=== PATIENT | male | born 1980 | race Caucasian/White ===

== ENCOUNTER 2019-10-02 14:27 | Emergency (ER) | payer OTHER, MEDICAID, SELFPAY ==
[2019-10-02 14:46] VITALS: BP 122/79; PULSE 88; RESP 15; TEMP 36.4; O2SAT 96; BMI 20.7
--- NOTE | 2019-10-02 15:39 | ED_ITS ---
HPI - Seizure <VIMAL House - Last Filed: 10/02/19 21:03> General Chief Complaint: Seizure Stated Complaint: seizure last night,withdrawls from xanax Time Seen by Provider: 10/02/19 14:47 Source: patient Mode of arrival: Ambulatory Limitations: no limitations History of Present Illness HPI Narrative: This is a 39 male, prior smoker, who presents to ED with his spouse with chief complain of unwitnessed status post seizure activities last night. Patient reports he had seizure and shaking when he went into the kitchen to grab a glass of milk. Then, patient reports he does not remember having a seizure but found himself on the ground in the kitchen. Patient denies having urinary or stool incontinence. Patient reports left shoulder and knee pain from this but is able to bear his weight and walked into ED today. Patient reports he has a history of ischemic stroke in May 2019 and was evaluated at [facility]. States he has known condition for CADASIL and has been worried about having another stroke. Patient elaborated that he has been taking Xanax 0.5 mg for 1 year for insomnia. Since the stroke the dose has been increased up to 3 mg per day due to the anxiety as well. However, due to his insurance problem, his neurologist (unable to recall the name) discontinued prescription for this suddenly. Patient reports last Xanax use about 3 days ago and had concurrently used benzodiazepines overlapping for 2 days. Patient states his seizure activities probably due to sudden stop of taking Xanax. Patient denies having PCP. Patient visited walk-in clinic in [place] and was prescribed hydroxyzine but this has not been helpful for sleep or anxiety. Patient's next appointment with his neurologist is on 11/05/2018. Patient reports has residual L arm weakness and hard to think sometimes. 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 Related Data Home Medications Medication Instructions Recorded Confirmed alprazolam 0.25 mg PO BID 10/02/19 10/02/19 hydroxyzine HCl 50 - 100 mg PO QID PRN 10/02/19 10/02/19 Previous Rx's Medication Instructions Recorded hydroxyzine HCl 25 - 50 mg PO TID PRN #20 tab 10/02/19 Allergies Allergy/AdvReac Type Severity Reaction Status Date / Time No Known Drug Allergies Allergy Verified 10/02/19 14:46 Review of Systems <Noam MARILOU EstevesP - Last Filed: 10/02/19 21:03> Review of Systems Narrative: General: Denies fever, chills, fatigue, malaise, sweats. HEENT: Denies sinus pain, ear pain, sore throat, difficulty swallowing, dizziness. Respiratory: Denies dyspnea, cough, wheezing, hemoptysis, sputum. Cardiovascular: Denies chest pain, palpitations, orthopnea, edema. Gastrointestinal: Denies nausea, vomiting, abdominal pain, diarrhea, const ipation, melena. : Denies dysuria, frequency, incontinence, hematuria, urinary retention. Musculoskeletal: Denies weakness, joint pain or bony pain. Skin: Denies rash, skin lesions, or other. Neurologic: See HPI Psychiatric: Reports insomnia and history of anxiety. 12-point review of systems is negative except for those stated above. Patient History <[facility] - Last Filed: 10/02/19 21:03> Surgical History Hx of tonsillectomy (Acute) Social History Smoking Status: Former smoker alcohol intake frequency: holidays/special occasions only Substance Use Type: marijuana Exam <[facility] - Last Filed: 10/02/19 21:03> Narrative Exam Narrative: GEN: Alert, oriented x 3, thin built, appears to be anxious. Head: Normal cephalic, atraumatic. No scalp or temporal tenderness, palpable mass, crepitus, step-offs or rash. EYES: Pupils are equal, round, and reactive to light and accommodation. Extraocular muscles are intact bilaterally. There is no subconjunctival hemorrhage, exudate and sclera non-icteric. ENT: Bilateral auditory canals and tympanic membranes clear without hemotympanum. Hearing grossly intact. Nose without bleeding, purulent discharge, septal hematoma or deviation. Turbinate without erythema or swelling. Facial sinuses nontender to palpate. Mucous membrane moist, no mucosal lesion. Throat without erythema, tonsillar hypertrophy or exudate. Uvula in midline, airway patent. Neck: Trachea in midline. No JVD, non-tender without lymphadenopathy. No masses or thyroid megaly. Supple, non-tender and no meningeal signs. CARDIAC: Normal regular rate and rhythm without murmurs, gallops, or rubs. No chest wall tenderness. No peripheral edema, cyanosis or pallor. Capillary refill is less than 2 seconds. No carotid bruits. RESPIRATORY: Lungs are cleat to auscultate bilaterally. No cough, wheezes, rales, or rhonchi. No stridor, respiratory distress, increase work of breathin g, or accessary muscle used. ABD: Abdomen soft, nontender and non-distended. No guarding or rebound tenderness to palpate. Bowel sounds are normal in all 4 quadrants. There is no palpable masses or organomegaly. EXT: Full painless ROM of all extremities with no loss of sensation, strength, effusion or edema on left anterior shoulder or knee. Complaining of mild tenderness around the patella in left knee and anterior left shoulder. SKIN: Warm, dry, normal color for patient. No erythema, lesions or rash. BACK: Nontender without deformity or crepitance. No flank tenderness. PSYCHIATRIC: Anxious without hallucinations. Patient is not suicidal. Initial Vital Signs Initial Vital Signs: Vital Signs Temperature 97.6 F 10/02/19 14:46 Pulse Rate 88 10/02/19 14:46 Respiratory Rate 15 10/02/19 14:46 Blood Pressure 122/79 10/02/19 14:46 Pulse Oximetry 96 10/02/19 14:46 Neuro General: alert, awake, oriented x3, moves all extremities and no meningeal signs Cranial Nerves: PERRL, EOM intact bilaterally, No facial strength normal (mild lip droop in L side when asked to smile), tongue midline, hearing normal, able to rotate head bilaterally and symmetric palate elevation Cognition: normal cognition Speech: speech normal Gait: not ataxic Motor: no pronator drift (very mild L pronator drift on L arm) and strength abnormal (Mildly decreased strength in left upper and lower extremities.) Sensory Exam: no sensory deficits noted Coordination: [id number] test normal and [id number] test normal <Zeb Avila, DO - Last Filed: 10/04/19 18:30> Initial Vital Signs Initial Vital Signs: Vital Signs Temperature 97.6 F 10/02/19 14:46 Pulse Rate 88 10/02/19 14:46 Respiratory Rate 15 10/02/19 14:46 Blood Pressure 122/79 10/02/19 14:46 Pulse Oximetry 96 10/02/19 14:46 Scores <Noam EppersonMARILOU realP - Last Filed: 10/02/19 21:03> GCS Risa coma scale eye opening: Spontaneous Meridian coma scale verbal response: Orientated Risa coma scale motor response: Obey commands Risa coma scale total score: 15 NIH Stroke Scale Level of Conciousness: Alert, keenly responsive Ask month/age: Answers both questions correctly. Open/close eyes, close hand: Performs both tasks correctly Best gaze horizontal: Normal Visual thomas: Partial hemianopia (on L side) Facial palsy: Minor paralysis, flattened nasolabial fold, asymmetry on smiling Left arm drift: Drifts down, not to bed Right arm drift: No drift for full 10 sec Right leg drift: Drifts down, not to bed Limb ataxia: Absent Sensory on face/arms/legs: Normal, no sensory loss Best language: No aphasia, normal Dysarthria: Normal Extinction or inattention: No abnormality Course <Noam WinklerMonalisaMARILOU BoggsP - Last Filed: 10/02/19 21:03> Orders Ordered: ED Orders 10/02/19 15:36 EKG-12 Lead Stat 10/02/19 15:59 Urinalysis Sreen (Dip Only) Stat Urine Drug Screen, Rapid Stat 10/02/19 16:00 Complete Blood Count AUTO DIFF Stat Comprehensive Metabolic Panel Stat Magnesium Stat Phosphorous Stat Vital Signs Vital signs: Vital Signs - 8 hr 10/02/19 14:46 10/02/19 17:27 Temperature 97.6 F Pulse Rate 88 80 Respiratory Rate 15 Blood Pressure 122/79 114/81 Pulse Oximetry 96 <Zeb Avila DO - Last Filed: 10/04/19 18:30> Orders Ordered: ED Orders 10/02/19 15:36 EKG-12 Lead Stat 10/02/19 15:59 Urinalysis Sreen (Dip Only) Stat Urine Drug Screen, Rapid Stat 10/02/19 16:00 Complete Blood Count AUTO DIFF Stat Comprehensive Metabolic Panel Stat Magnesium Stat Phosphorous Stat Vital Signs Vital signs: Vital Signs - 8 hr 10/02/19 14:46 10/02/19 17:27 Temperature 97.6 F Pulse Rate 88 80 Respiratory Rate 15 Blood Pressure 122/79 114/81 Pulse Oximetry 96 MDM - Seizure <MARILOU HouseP - Last Filed: 10/02/19 21:03> Differential Diagnosis Differential diagnosis: Likely new onset seizure and other (Syncope, benzodiazepine withdrawal, benzodiazepine abuse) Medical Records Attestation: I reviewed the patient's medical records. Lab Data Attestation: I reviewed the patient's lab results. Result diagrams: 10/02/19 16:00 10/02/19 16:00 Labs: Lab Results 10/02/19 10/02/19 10/02/19 Range/Units 15:59 15:59 16:00 WBC (4.5-11.0) X10^3/uL RBC (4.5-5.9) X10^6/uL Hgb (13.5-17.5) g/dL Hct (41-53) % MCV (80-100) fL MCH (26-34) PG MCHC (30-36) % RDW (11.6-14.8) % Plt Count (150-400) X10^3/uL Neut % (Auto) (50-75) % Lymph % (Auto) (25-40) % Canadian % (Auto) (3-14) % Eos % (Auto) (2-4) % Baso % (Auto) (0-2) % Neut # (Auto) (7998-0954) /uL Lymph # (Auto) (0957-8359) /uL Canadian # (Auto) (0-900) /uL Eos # (Auto) (0-450) /uL Baso # (Auto) (0-100) /uL Sodium 141 (137-145) mmol/L Potassium 4.2 (3.4-5.1) mmol/L Chloride 106 (98-107) mmol/L Carbon Dioxide 26 (22-32) mmol/L BUN 14 (9-20) mg/dL Creatinine 0.70 (0.66-1.25) mg/dL Estimated GFR > 60.0 (>60) mL/min BUN/Creatinine Ratio 20.0 (6-22) Glucose 97 (70-100) mg/dL Calcium 9.5 (8.4-10.2) mg/dL Phosphorus (2.5-4.5) mg/dL Magnesium (1.6-2.3) mg/dL Total Bilirubin 1.0 (0.2-1.3) mg/dL AST 22 (17-59) IU/L ALT 22 (<50) IU/L Alkaline Phosphatase 46 (38-126) U/L Total Protein 7.3 (6.3-8.2) g/dL Albumin 4.7 (3.5-5.0) g/dL Globulin 2.6 (1.7-4.1) g/dL Albumin/Globulin Ratio 1.8 (1.0-2.8) Urine Color Yellow Urine Appearance Clear Urine pH 7.5 (4.5-8.0) Ur Specific [place] <=1.005 (1.000-1.035) Urine Protein Negative (Negative) Urine Glucose (UA) Negative (Negative) g/dL Urine Ketones Negative (NEGATIVE) Urine Occult Blood Negative (Negative) Urine Nitrate Negative (Negative) Urine Bilirubin Negative (NEGATIVE) Urine Urobilinogen 0.2 (0.2) E.U./dL Ur Leukocyte Esterase Negative (NEGATIVE) U Morph 300 ng/mL cutoff Negative (Negative) Ur Oxycodone Screen Negative (Negative) Urine Methadone Screen Negative (Negative) Ur Barbiturates Screen Negative (Negative) U Tricyclic Antidepress Negative (Negative) Ur Phencyclidine Scrn Negative (Negative) Ur Amphetamines Screen Negative (Negative) U Methamphetamines Scrn Negative (Negative) Ur MDMA Scrn (Ecstasy) Negative (Negative) U Benzodiazepines Scrn Positive H (Negative) Urine Cocaine Screen Negative (Negative) U Marijuana (THC) Screen Positive H (Negative) 10/02/19 10/02/19 10/02/19 Range/Units 16:00 16:00 16:00 WBC 9.0 (4.5-11.0) X10^3/uL RBC 4.24 L (4.5-5.9) X10^6/uL Hgb 14.5 (13.5-17.5) g/dL Hct 42.6 (41-53) % MCV 100.6 H (80-100) fL MCH 34.2 H (26-34) PG MCHC 34.0 (30-36) % RDW 13.6 (11.6-14.8) % Plt Count 304 (150-400) X10^3/uL Neut % (Auto) 63.4 (50-75) % Lymph % (Auto) 28.2 (25-40) % Canadian % (Auto) 6.6 (3-14) % Eos % (Auto) 1.1 L (2-4) % Baso % (Auto) 0.7 (0-2) % Neut # (Auto) 5700 (3374-4393) /uL Lymph # (Auto) 2500 (3413-1763) /uL Canadian # (Auto) 600 (0-900) /uL Eos # (Auto) 100 (0-450) /uL Baso # (Auto) 100 (0-100) /uL Sodium (137-145) mmol/L Potassium (3.4-5.1) mmol/L Chloride (98-107) mmol/L Carbon Dioxide (22-32) mmol/L BUN (9-20) mg/dL Creatinine (0.66-1.25) mg/dL Estimated GFR (>60) mL/min BUN/Creatinine Ratio (6-22) Glucose (70-100) mg/dL Calcium (8.4-10.2) mg/dL Phosphorus 3.1 (2.5-4.5) mg/dL Magnesium 2.0 (1.6-2.3) mg/dL Total Bilirubin (0.2-1.3) mg/dL AST (17-59) IU/L ALT (<50) IU/L Alkaline Phosphatase (38-126) U/L Total Protein (6.3-8.2) g/dL Albumin (3.5-5.0) g/dL Globulin (1.7-4.1) g/dL Albumin/Globulin Ratio (1.0-2.8) Urine Color Urine Appearance Urine pH (4.5-8.0) Ur Specific [place] (1.000-1.035) Urine Protein (Negative) Urine Glucose (UA) (Negative) g/dL Urine Ketones (NEGATIVE) Urine Occult Blood (Negative) Urine Nitrate (Negative) Urine Bilirubin (NEGATIVE) Urine Urobilinogen (0.2) E.U./dL Ur Leukocyte Esterase (NEGATIVE) U Morph 300 ng/mL cutoff (Negative) Ur Oxycodone Screen (Negative) Urine Methadone Screen (Negative) Ur Barbiturates Screen (Negative) U Tricyclic Antidepress (Negative) Ur Phencyclidine Scrn (Negative) Ur Amphetamines Screen (Negative) U Methamphetamines Scrn (Negative) Ur MDMA Scrn (Ecstasy) (Negative) U Benzodiazepines Scrn (Negative) Urine Cocaine Screen (Negative) U Marijuana (THC) Screen (Negative) ECG Data Attestation: I personally reviewed and interpreted this ECG as follows: Prior ECG tracings: not available for review Interpretation: Normal sinus rhythm rate at 75. No ST elevation or depression. QT/QTC 356/384 MDM Narrative Medical decision making narrative: This is a 31-year-old year male who presents to ED with self reported on witness seizure activity last night which patient contributes to Xanax withdrawl. Patient reports unknown duration of seizure activity and stated had a seizure and shakes without bowel or bladder incontinence. Patient denies increasing or different headaches, hematoma to his head, neck discomfort. Patient reported left anterior shoulder and knee pain. During Neuro exam, patient showed mild weakness and drift to his left arm and leg strength and left-sided facial droops and states patient has residual L side weakness on his extremities since the stroke in 05/2019. Patient was able to move his bilateral upper extremities without difficulty while patient conversing and answering questions. Patient had clear speech. Patient has peripheral lesions were intact but stated he had lost vision in left side. Patient's physical exam and HPI is not clearly consistent with seizure or stroke. According to patient's external medication history, there was attempts to taper off the Xanax dose during the month of July and August by Dr. Meenu Syed at [facility]. Patient also was this prescribed with Xanax and hydroxyzine in the month of August by HERMINIO Ware. Also noticed patient was prescribed with antiviral medication and prednisone around the time patient states had a stroke. [facility] radiology report was reviewed in PAC System and found the CT head, CTA and MRI indicating no acute or subacute brain infarction but does mentioning whitematter lesion which is more consistent with MS. Several attempts to contact Dr. Smith were made but no return calls received. Patient declined left shoulder x-ray and head CT test. Blood tests were unremarkable. UDS showed positive for benzodiazepine and marijuana which patient already reported. Patient was re-evaluated and share the findings of old imaging tests, today's blood test. Patient states actually he had taken last dose of Xanax prior coming into ED today. He became tearful and anxiously reports is afraid of having a withdrawal symptoms, elevated blood pressure and possible seizure activities. He requests tapering duration and dose for Xanax prescription repeatedly. Patient informed that will happily provide prescriptions for hydroxyzine and Zofran and also will provide resource information to get help for benzodiazepine dependency and chronic use. Herminio blanca denied nausea or abdominal pain currently. Patient declined Toradol Inj for musculoskeletal discomfort. Patient agrees to get a prescription for benzodiazepine and declined for Zofran. Patient's spouse came out of the room and to inform there should be more doctors like you. I'd tried tell him to stop.. [facility] resources contact phone number was provided to set up a PCP. Handouts for detox facilities provided as well. Patient and spouse advised to incorporate meditation, exercise, deep breathing exercises, using [id number] melatonin, and warm showers to help with sleep at night and relaxation. Patient and spouse verbalized understanding and agrees with the treatment plan. Return precautions were discussed with the patient. <Zeb Avila, DO - Last Filed: 10/04/19 18:30> Lab Data Labs: Lab Results 10/02/19 10/02/19 10/02/19 Range/Units 15:59 15:59 16:00 WBC (4.5-11.0) X10^3/uL RBC (4.5-5.9) X10^6/uL Hgb (13.5-17.5) g/dL Hct (41-53) % MCV (80-100) fL MCH (26-34) PG MCHC (30-36) % RDW (11.6-14.8) % Plt Count (150-400) X10^3/uL Neut % (Auto) (50-75) % Lymph % (Auto) (25-40) % Canadian % (Auto) (3-14) % Eos % (Auto) (2-4) % Baso % (Auto) (0-2) % Neut # (Auto) (3023-6642) /uL Lymph # (Auto) (6011-7362) /uL Canadian # (Auto) (0-900) /uL Eos # (Auto) (0-450) /uL Baso # (Auto) (0-100) /uL Sodium 141 (137-145) mmol/L Potassium 4.2 (3.4-5.1) mmol/L Chloride 106 (98-107) mmol/L Carbon Dioxide 26 (22-32) mmol/L BUN 14 (9-20) mg/dL Creatinine 0.70 (0.66-1.25) mg/dL Estimated GFR > 60.0 (>60) mL/min BUN/Creatinine Ratio 20.0 (6-22) Glucose 97 (70-100) mg/dL Calcium 9.5 (8.4-10.2) mg/dL Phosphorus (2.5-4.5) mg/dL Magnesium (1.6-2.3) mg/dL Total Bilirubin 1.0 (0.2-1.3) mg/dL AST 22 (17-59) IU/L ALT 22 (<50) IU/L Alkaline Phosphatase 46 (38-126) U/L Total Protein 7.3 (6.3-8.2) g/dL Albumin 4.7 (3.5-5.0) g/dL Globulin 2.6 (1.7-4.1) g/dL Albumin/Globulin Ratio 1.8 (1.0-2.8) Urine Color Yellow Urine Appearance Clear Urine pH 7.5 (4.5-8.0) Ur Specific [place] <=1.005 (1.000-1.035) Urine Protein Negative (Negative) Urine Glucose (UA) Negative (Negative) g/dL Urine Ketones Negative (NEGATIVE) Urine Occult Blood Negative (Negative) Urine Nitrate Negative (Negative) Urine Bilirubin Negative (NEGATIVE) Urine Urobilinogen 0.2 (0.2) E.U./dL Ur Leukocyte Esterase Negative (NEGATIVE) U Morph 300 ng/mL cutoff Negative (Negative) Ur Oxycodone Screen Negative (Negative) Urine Methadone Screen Negative (Negative) Ur Barbiturates Screen Negative (Negative) U Tricyclic Antidepress Negative (Negative) Ur Phencyclidine Scrn Negative (Negative) Ur Amphetamines Screen Negative (Negative) U Methamphetamines Scrn Negative (Negative) Ur MDMA Scrn (Ecstasy) Negative (Negative) U Benzodiazepines Scrn Positive H (Negative) Urine Cocaine Screen Negative (Negative) U Marijuana (THC) Screen Positive H (Negative) 10/02/19 10/02/19 10/02/19 Range/Units 16:00 16:00 16:00 WBC 9.0 (4.5-11.0) X10^3/uL RBC 4.24 L (4.5-5.9) X10^6/uL Hgb 14.5 (13.5-17.5) g/dL Hct 42.6 (41-53) % MCV 100.6 H (80-100) fL MCH 34.2 H (26-34) PG MCHC 34.0 (30-36) % RDW 13.6 (11.6-14.8) % Plt Count 304 (150-400) X10^3/uL Neut % (Auto) 63.4 (50-75) % Lymph % (Auto) 28.2 (25-40) % Canadian % (Auto) 6.6 (3-14) % Eos % (Auto) 1.1 L (2-4) % Baso % (Auto) 0.7 (0-2) % Neut # (Auto) 5700 (0945-9807) /uL Lymph # (Auto) 2500 (8716-0860) /uL Canadian # (Auto) 600 (0-900) /uL Eos # (Auto) 100 (0-450) /uL Baso # (Auto) 100 (0-100) /uL Sodium (137-145) mmol/L Potassium (3.4-5.1) mmol/L Chloride (98-107) mmol/L Carbon Dioxide (22-32) mmol/L BUN (9-20) mg/dL Creatinine (0.66-1.25) mg/dL Estimated GFR (>60) mL/min BUN/Creatinine Ratio (6-22) Glucose (70-100) mg/dL Calcium (8.4-10.2) mg/dL Phosphorus 3.1 (2.5-4.5) mg/dL Magnesium 2.0 (1.6-2.3) mg/dL Total Bilirubin (0.2-1.3) mg/dL AST (17-59) IU/L ALT (<50) IU/L Alkaline Phosphatase (38-126) U/L Total Protein (6.3-8.2) g/dL Albumin (3.5-5.0) g/dL Globulin (1.7-4.1) g/dL Albumin/Globulin Ratio (1.0-2.8) Urine Color Urine Appearance Urine pH (4.5-8.0) Ur Specific [place] (1.000-1.035) Urine Protein (Negative) Urine Glucose (UA) (Negative) g/dL Urine Ketones (NEGATIVE) Urine Occult Blood (Negative) Urine Nitrate (Negative) Urine Bilirubin (NEGATIVE) Urine Urobilinogen (0.2) E.U./dL Ur Leukocyte Esterase (NEGATIVE) U Morph 300 ng/mL cutoff (Negative) Ur Oxycodone Screen (Negative) Urine Methadone Screen (Negative) Ur Barbiturates Screen (Negative) U Tricyclic Antidepress (Negative) Ur Phencyclidine Scrn (Negative) Ur Amphetamines Screen (Negative) U Methamphetamines Scrn (Negative) Ur MDMA Scrn (Ecstasy) (Negative) U Benzodiazepines Scrn (Negative) Urine Cocaine Screen (Negative) U Marijuana (THC) Screen (Negative) Discharge Plan Departure Patient Disposition: Home Clinical Impression: Anxiety Insomnia Qualifiers: Insomnia type: unspecified Qualified Code(s): G47.00 - Insomnia, unspecified Discharge Date/Time: 10/02/19 17:29 Instructions: DI for Anxiety -- Adult, DI for Insomnia Activity Restrictions/Additional Instructions: You have been diagnosed with [insomnia, anxiety, chronic benzodiazepine use. Blood tests that were done today are normal. You declined head CT and shoulder x-ray.]. What to do: *Take your medications as directed. Please take hydroxyzine as needed up to 3 times a day. This medication can cause sedation so please take precautions such as not driving, drink alcohol or operating heavy equipments. * please contact [facility] Resource number to set up primary care physician. Please contact Resource numbers that has been provided to you to get help for stop taking chronic benzodiazepine use. *Return to ED if you have any new, worsening, or concerning symptoms, such as [chest pain, breathing difficulty, unable to tolerate fluids, or any acute concerns]. Prescriptions: New hydroxyzine HCl 25 mg tablet 25 - 50 mg PO TID PRN (Reason: anxiety) Qty: 20 RF: 0 No Action hydroxyzine HCl 50 mg tablet 50 - 100 mg PO QID PRN (Reason: Anxiety) RF: 0 alprazolam 0.25 mg tablet 0.25 mg PO BID RF: 0 Referrals: [facility] Resources [Outside] <Zeb Avila DO - Last Filed: 10/04/19 18:30> Sign Out Provider Sign Out Attestation: Dr Avila Co-Sign Statement: I was available for consultation during this patient's emergency department visit. This chart is signed by myself for administrative purposes only. I did not have direct contact with this patient during this visit. They were seen independently by the APC.
[2019-10-02 16:08] LABS: Add Manual Diff / Slide Review NO; Basophils Absolute Auto 100 /uL (0-100); Basophils Percent Auto 0.7 % (0-2); Eosinophils Absolute Auto 100 /uL (0-450); Eosinophils Percent Auto 1.1 % (2-4); Hematocrit 42.6 % (41-53); Hemoglobin 14.5 g/dL (13.5-17.5); Lymphocytes Absolute Auto 2500 /uL (1100-4500); Lymphocytes Percent Auto 28.2 % (25-40); Mean Corpuscular Hemoglobin 34.2 PG (26-34); Mean Corpuscular Volume 100.6 fL (80-100); Monocytes Absolute Auto 600 /uL (0-900); Monocytes Percent Auto 6.6 % (3-14); Neutrophils Absolute Auto 5700 /uL (1500-7000); Neutrophils Percent Auto 63.4 % (50-75); Platelet Count 304 X10^3/uL (150-400); Red Blood Cell Count 4.24 X10^6/uL (4.5-5.9); Red Cell Distribution Width 13.6 % (11.6-14.8)
[2019-10-02 16:15] LABS: Appearance Urine UA CLEAR; Bilirubin Urine UA NEGATIVE (NEGATIVE); Color Urine UA YELLOW; Glucose Urine UA NEGATIVE (Negative); Ketones Urine UA NEGATIVE (NEGATIVE); Leukocyte Esterase Urine UA NEGATIVE (NEGATIVE); Nitrite Urine UA NEGATIVE (Negative); Occult Blood Urine UA NEGATIVE (Negative); Protein Urine UA NEGATIVE (Negative); Specific Gravity Urine UA <=1.005 (1.000-1.035); Urobilinogen Urine UA 0.2 E.U./dL (0.2); pH Urine UA 7.5 (4.5-8.0)
[2019-10-02 16:21] LABS: Phosphorous 3.1 mg/dL (2.5-4.5)
[2019-10-02 16:21] LABS: UR Morphine/Opiate cutoff 300 Negative (Negative); Ur Creatinine Normal (Normal); Ur Specific Gravity Normal (Normal); Urine Amphetamines Negative (Negative); Urine Barbiturates Negative (Negative); Urine Benzodiazepines Positive (Negative); Urine Cocaine Negative (Negative); Urine MDMA Negative (Negative); Urine Methadone Negative (Negative); Urine Methamphetamines Negative (Negative); Urine Oxycodone Negative (Negative); Urine Phencyclidine Negative (Negative); Urine Tetrahydrocannabinol Positive (Negative); Urine Tricyclic Antidepressant Negative (Negative); Urine pH Normal (Normal)
[2019-10-02 16:26] LABS: Alanine Aminotransferase 22 IU/L (<50); Albumin 4.7 g/dL (3.5-5.0); Albumin Globulin Ratio 1.8 (1.0-2.8); Alkaline Phosphatase 46 U/L (38-126); Aspartate Aminotransferase 22 IU/L (17-59); Blood Urea Nitrogen 14 mg/dL (9-20); Calcium 9.5 mg/dL (8.4-10.2); Carbon Dioxide 26 mmol/L (22-32); Chloride 106 mmol/L (98-107); Estimated Glomerular Filt Rate > 60.0 mL/min (>60); Globulin 2.6 g/dL (1.7-4.1); Glucose 97 mg/dL (70-100); HEMOLYSIS < 15 (0-50); Potassium 4.2 mmol/L (3.4-5.1); Sodium 141 mmol/L (137-145); Total Protein 7.3 g/dL (6.3-8.2)
[2019-10-02 17:27] VITALS: BP 114/81; PULSE 80
== END 2019-10-02 17:29 | disposition home or self-care (01) ==
PROVIDERS: Emergency Provider Nurse Practitioner Family
DX: F41.9 Anxiety disorder, unspecified (principal); G47.00 Insomnia, unspecified; M25.512 Pain in left shoulder; M25.569 Pain in unspecified knee; I10 Essential (primary) hypertension
CPT/HCPCS: 36415; 80053; 80305; 81003; 83735; 84100; 85025; 93005; 99282; 99284

== ENCOUNTER 2023-08-08 08:15 | Emergency (ER) | payer OTHER, SELFPAY ==
[2023-08-08 08:24] VITALS: BP 109/72; PULSE 73; RESP 18; TEMP 36.8; O2SAT 100; BMI 20.7
--- NOTE | 2023-08-08 08:42 | ED_ITS ---
HPI - Head Injury General Chief complaint: Head Injury Stated complaint: hit in the head at work Time Seen by Provider: 08/08/23 08:35 Source: patient Mode of arrival: Ambulatory History of Present Illness HPI Narrative: Patient is a 43-year-old male who almost 24 hours ago hit the left side of his head while at work. 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 He states that a piece of equipment broke and he fell and hit his left head on a toilet. No loss of consciousness. Since that time he has had a headache and some nausea. He also has left-sided neck discomfort. He has been taking Tylenol but his headache has persisted. No other injuries from the event. Not on blood thinner. Related Data Home Medications Medication Instructions Recorded Confirmed alprazolam 0.25 mg tablet 0.25 mg PO BID 10/02/19 10/02/19 hydroxyzine HCl 50 mg tablet 50 - 100 mg PO QID PRN Anxiety 10/02/19 10/02/19 Previous Rx's Medication Instructions Recorded hydroxyzine HCl 25 mg tablet 25 - 50 mg (1 - 2 x 25 mg) PO TID 10/02/19 PRN anxiety #20 tabs cyclobenzaprine 10 mg tablet 10 mg PO TID PRN muscle spasm #14 08/08/23 tabs ondansetron 4 mg disintegrating 4 mg PO Q6H PRN nausea and 08/08/23 tablet vomiting #10 tabs Allergies Allergy/AdvReac Type Severity Reaction Status Date / Time No Known Drug Allergies Allergy Verified 10/02/19 14:46 Review of Systems Constitutional Constitutional: Reports system reviewed and no additional complaints, except as documented Eyes Eyes: Reports system reviewed and no additional complaints, except as documented ENT Ears, Nose, Mouth, and Throat: Reports system reviewed and no additional complaints, except as documented Integumentary/Breasts Skin/Breast: Reports system reviewed and no additional complaints, except as documented Neurologic Neurologic: Reports system reviewed and no additional complaints, except as documented Hematologic/Lymphatic On Anticoagulants: No Patient History Surgical History Hx of tonsillectomy Social History Smoking Status: Former smoker Smoking Status: Former smoker alcohol intake frequency: holidays/special occasions only Substance Use Type: does not use Exam Initial Vital Signs Initial Vital Signs: Vital Signs Temperature 98.3 F 08/08/23 08:24 Pulse Rate 73 08/08/23 08:24 Respiratory Rate 18 08/08/23 08:24 Blood Pressure 109/72 08/08/23 08:24 Pulse Oximetry 100 08/08/23 08:24 Oxygen Delivery Method Room Air 08/08/23 08:24 Const General: cooperative, comfortable and No ill appearing HENKY Head: normal to inspection, normocephalic, No contusion, No hematoma, No laceration and No palpable skull fracture Ears: TM's normal bilaterally Face and sinus: normal facial exam Mouth: oral mucosae normal Resp Effort & Inspection: normal respiratory effort Cardio Rate: regular rate Back/Spine/Pelvis Other: Tenderness to palpation left-sided cervical spine musculature no midline tenderness Skin General: no rashes or lesions noted Neuro General: patient alert, patient awake, patient oriented x3 and moves all extremities Speech: speech normal Gait: normal gait Sensory Exam: no sensory deficits noted Extrem General: capillary refill normal Scores Mexican CT Head Rule Age <16 years old: No Patient on blood thinners: No Seizure after injury: No Exclusion: Patient NOT Excluded, Proceed to next steps GCS < 15 at 2 hr post trauma: No Suspected open or depressed skull fracture: No Any sign of basilar skull fracture (hemotympanum, raccoon eyes, De Los Santos's sign, CSF brittany-/rhinorrhea): No Two or more episodes of vomiting: No Age greater or equal to 65 years: No Retrograde amnesia to the event greater or equal to 30 min: No Dangerous Mechanism (pedestrian vs. mv, occupant ejected from mv, fall from >3 ft or > 5 stairs): No Recommendation: CT unnecessary GCS [place] coma scale eye opening: Spontaneous [place] coma scale verbal response: Orientated Nexus Score for C-Spine Focal Neurologic deficit present: No Midline spinal tenderness present: No Altered level of conciousness present: No Intoxication present: No Distracting Injury Present: No Nexus Criteria for C-spine: 0 Course Vital Signs Vital signs: Vital Signs - 8 hr 08/08/23 08:24 Temperature 98.3 F Pulse Rate 73 Respiratory Rate 18 Blood Pressure 109/72 Pulse Oximetry 100 Oxygen Delivery Method Room Air MDM - Head Injury MDM Narrative Medical decision making narrative: Patient does have a headache and some nausea which given his scenario would be suspicious for a concussion. He does have left-sided cervical musculature discomfort. I did discuss this with the patient. I have low suspicion for skull fracture. Low suspicion for intracranial hemorrhage. No indication for radiologic studies. We did discuss his head injury. We did discuss his cervical muscle discomfort. Will discharge patient home with return precautions. He expressed understanding and agreement with plan. Discharge Plan Departure Patient Disposition: Home Clinical Impression: Closed head injury, Cervical muscle strain Instructions: DI for Closed Head Injury Activity Restrictions/Additional Instructions: I do recommend that you continue to take all of your medications as directed. You can eat like normal and sleep like normal. You have no restrictions on your activities other than avoiding activities that make any of your symptoms worse. Contact your primary doctor for a follow-up. Prescriptions: New ondansetron 4 mg tablet,disintegrating 4 mg PO Q6H PRN (Reason: nausea and vomiting) Qty: 10 0RF cyclobenzaprine 10 mg tablet 10 mg PO TID PRN (Reason: muscle spasm) Qty: 14 0RF No Action hydroxyzine HCl 50 mg tablet 50 - 100 mg PO QID PRN (Reason: Anxiety) Patient Comments: take 1 to 2 tablets by mouth four times a day if needed for anxiety alprazolam 0.25 mg tablet 0.25 mg PO BID Patient Comments: patient states did not take 0.25mg. believes last dose was 0.5mg taken a couple of days ago and then today. 10/02/19 Rx Instructions: TAKE 1 TABLET BY MOUTH TWICE DAILY FOR 7 DAYS hydroxyzine HCl 25 mg tablet 25 - 50 mg PO TID PRN (Reason: anxiety) Qty: 20 0RF Referrals: Deb Montemayor ARNP [Primary Care Provider] - Stand Alone Forms: Patient Portal/API
== END 2023-08-08 08:50 | disposition home or self-care (01) ==
PROVIDERS: Emergency Provider Emergency Medicine; PCP Emergency Medicine
DX: S09.90XA Unspecified injury of head, initial encounter (principal); S16.1XXA Strain of muscle, fascia and tendon at neck level, initial encounter; W20.8XXA Other cause of strike by thrown, projected or falling object, initial encounter; Y99.0 Civilian activity done for income or pay
CPT/HCPCS: 99281; 99283

== ENCOUNTER 2025-03-25 10:33 | Emergency (ER) | payer OTHER, SELFPAY ==
[2025-03-25 10:40] VITALS: BP 111/70; PULSE 85; RESP 16; TEMP 36.6; O2SAT 97
--- NOTE | 2025-03-25 10:52 | DI.CT.S_ITS ---
PROCEDURE: CT STROKE INDICATIONS: STROKE TECHNIQUE: Noncontrast 4.5 mm thick angled axial sections acquired from the foramen magnum to the vertex, with coronal reformats. For radiation dose reduction, the following was used: automated exposure control, adjustment of mA and/or kV according to patient size. COMPARISON: Reports only from outside prior CT and MRI dated 06/25/2019. FINDINGS: Image quality: Diagnostic. CSF spaces: Basal cisterns are patent. No extra-axial fluid collections. Ventricles are normal in size and shape. Brain: No midline shift. No intracranial mass effect or acute hemorrhage. Moderate subcortical and periventricular white matter hypodensities are seen abdomen greater than expected for patient age, including avulsion at the anterior temporal lobes. Findings can be seen in setting of CADASIL. No acute loss of pierce-white matter differentiation is identified. Skull and face: Calvarium and visualized facial bones are intact, without suspicious lesions. Sinuses: Visualized sinuses and mastoids are clear. IMPRESSION: 1. No acute intracranial pathology. 2. Diffuse white matter changes greater than expected for patient's age. Patient reportedly has a family history of CADASIL, and current findings would be compatible with this syndrome. No acute loss of pierce-white matter differentiation is identified. Findings were discussed with the referring provider, Dr. Girard, by telephone on 03/25/2025 at 10:14 AM ([place] time). This study fulfills neurological imaging criteria for inclusion or exclusion of acute stroke therapies based on available published neurological imaging guidelines. Approved by: Kevin Trent M.D. on 03/25/2025 at 10:15
--- NOTE | 2025-03-25 10:59 | DI.CT.S_ITS ---
PROCEDURE: CT ANGIO HEAD AND NECK INDICATIONS: CODE STROKE TECHNIQUE: After the administration of intravenous contrast, 1 mm thick sections acquired from the aortic arch through the [place] of [place]. 3-dimensional [id number] (MIP) and/or volume rendering reformats were acquired of the central intracranial vasculature and neck separately. For radiation dose reduction, the following was used: automated exposure control, adjustment of mA and/or kV according to patient size. COMPARISON: [facility], CT, CT STROKE, 03/25/2025, 10:59. Reports only from prior outside CT and MRI 06/25/2019. FINDINGS: Image quality: Diagnostic. Cerebral CT Angiogram: Internal carotid arteries: No acute findings. Intracranial ICA are patent with no significant stenosis. No occlusion. No aneurysm. Anterior cerebral arteries: Unremarkable. No significant stenosis. No occlusion. No aneurysm. Middle cerebral arteries: Unremarkable. No significant stenosis. No occlusion. No aneurysm. Posterior cerebral arteries: Unremarkable. No significant stenosis. No occlusion. No aneurysm. Basilar artery: Unremarkable. No significant stenosis. No occlusion. No aneurysm. Vertebral arteries: Unremarkable as visualized. Dural venous sinuses: Unremarkable given phase of enhancement. Other: Arterial phase appearance of the brain parenchyma demonstrates extensive white matter disease greater than expected for patient's age.. Neck CT Angiogram: Internal carotid arteries: Unremarkable. No significant stenosis. No dissection or occlusion. Common carotid arteries: Unremarkable. No significant stenosis. No dissection or occlusion. External carotid arteries: Unremarkable. No occlusion. Vertebral arteries: Left vertebral artery arises directly from the aortic arch, a normal anatomic variant. Vertebral arteries are patent. Right vertebral artery is mildly congenitally dominant. Aortic Arch and Mediastinum: Partially visualized aortic arch unremarkable without evidence of aneurysm. Origins of the great vessels unremarkable. Other: Arterial phase soft tissues of the neck and chest are unremarkable. IMPRESSION: No significant intracranial arterial abnormality is seen. No significant abnormality is seen within the arteries of the neck. Any quantitative measurements of stenosis were performed using NASCET criteria. Approved by: Kevin Trent M.D. on 03/25/2025 at 10:21
[2025-03-25 11:04] LABS: Add Manual Diff / Slide Review NO; Basophils Absolute Auto 0 /uL (0-100); Basophils Percent Auto 0.5 % (0-2); Eosinophils Absolute Auto 0 /uL (0-450); Eosinophils Percent Auto 0.2 % (2-4); Hematocrit 39.7 % (41-53); Hemoglobin 13.6 g/dL (13.5-17.5); Lymphocytes Absolute Auto 1600 /uL (1100-4500); Lymphocytes Percent Auto 19.4 % (25-40); Mean Corpuscular HGB Conc 34.2 % (30-36); Mean Corpuscular Hemoglobin 32.1 PG (26-34); Mean Corpuscular Volume 93.8 fL (80-100); Monocytes Absolute Auto 500 /uL (0-900); Monocytes Percent Auto 6.5 % (3-14); Neutrophils Absolute Auto 6000 /uL (1500-7000); Neutrophils Percent Auto 73.4 % (50-75); Platelet Count 201 X10^3/uL (150-400); Red Blood Cell Count 4.23 X10^6/uL (4.5-5.9); Red Cell Distribution Width 14.1 % (11.6-14.8); White Blood Cell Count 8.1 X10^3/uL (4.5-11.0)
[2025-03-25 11:18] LABS: INR 1.1 (0.9-1.3); Prothrombin Time 12.5 SECONDS (9.4-12.5)
[2025-03-25 11:21] LABS: PTT Partial Thromboplastin Tim 35 SECONDS (25.1-36.5)
--- NOTE | 2025-03-25 12:07 | ED.NEUROSD ---
HPI - Neuro Symptoms/Deficit General Chief Complaint: Neuro Symptoms/Deficit Stated Complaint: possbile TIA Time Seen by Provider: 03/25/25 11:43 History of Present Illness HPI Narrative: 44-year-old male with family history of CADASIL disease but no formal diagnosis of his own, though he suspects that he might have the disease as well, has left-sided headache since Tuesday, passed out on Tuesday briefly but not seek medical care, no weakness at that time recalled, last night 1 in the morning had palpitation like symptoms and sweating, no cough, no fever recalled, had some left-sided weakness with left arm more than left leg, did not seek care, today with persisting left arm greater than left leg weakness, and persisting left headache. On Anticoagulants: No Related Data Home Medications Medication Instructions Recorded Confirmed alprazolam 0.25 mg tablet 0.25 mg PO BID 10/02/19 10/02/19 hydroxyzine HCl 50 mg tablet 50 - 100 mg PO QID PRN Anxiety 10/02/19 10/02/19 Previous Rx's Medication Instructions Recorded hydroxyzine HCl 25 mg tablet 25 - 50 mg (1 - 2 x 25 mg) PO TID 10/02/19 PRN anxiety #20 tabs cyclobenzaprine 10 mg tablet 10 mg PO TID PRN muscle spasm #14 08/08/23 tabs ondansetron 4 mg disintegrating 4 mg PO Q6H PRN nausea and 08/08/23 tablet vomiting #10 tabs Allergies Allergy/AdvReac Type Severity Reaction Status Date / Time No Known Drug Allergies Allergy Verified 10/02/19 14:46 Review of Systems Hematologic/Lymphatic On Anticoagulants: No Patient History Surgical History Hx of tonsillectomy alcohol intake frequency: holidays/special occasions only Exam Narrative Exam Narrative: GENERAL: [] year old patient appears stated age. Well-developed patient, in mild distress. While that room. HEAD: Atraumatic. Normocephalic. EYES: Pupils equal round and reactive. Extraocular motions intact. No scleral icterus. No injection or drainage. ENT: Nose without bleeding, purulent drainage. Throat without erythema, tonsillar hypertrophy or exudate. Airway patent. NECK: Trachea midline. Non tender. Moves neck well. CARDIOVASCULAR: Regular rate and rhythm without murmurs, gallops, or rubs. RESPIRATORY: Clear to auscultation. Breath sounds equal bilaterally. No wheezes, rales, or rhonchi. GASTROINTESTINAL: Abdomen soft, non-tender, nondistended. EXTREMITIES: No edema or joint tenderness. BACK: Nontender without deformity or crepitance. No flank tenderness. NEURO: Alert, cooperative. Cranial nerves unremarkable. Motor left upper extremity lifted symmetrically but slight drift at the end of 10 seconds, left lower extremity incompletely lifted off the gurney and had drift back down to the gurney after a few seconds. Sensation intact right side, subjective decreased sensation light touch left face arm leg. SKIN: No rash or erythema of visible areas Initial Vital Signs Initial Vital Signs: Vital Signs Temperature 98 F 03/25/25 10:40 Pulse Rate 85 03/25/25 10:40 Respiratory Rate 16 03/25/25 10:40 Blood Pressure 111/70 03/25/25 10:40 Pulse Oximetry 97 03/25/25 10:40 Oxygen Delivery Method Room Air 03/25/25 10:40 Course Orders Ordered: ED Orders 03/25/25 10:52 CT Stroke Stat 03/25/25 10:53 Complete Blood Count AUTO DIFF Stat PTT Partial Thromboplastin Rajinder Stat Prothrombin Time INR Stat 03/25/25 10:59 CT angio head and neck Stat 03/25/25 12:54 MR head/brain wo con Stat Discontinued Medications Aspirin (Aspirin 81 Mg Chew Tab) 324 mg PO NOW ONE Stop: 03/25/25 12:25 Last Admin: 03/25/25 12:35 Dose: 324 mg Documented By: Dexamethasone (Dexamethasone 10 Mg/Ml Vial) 10 mg IV NOW ONE Stop: 03/25/25 12:25 Last Admin: 03/25/25 12:35 Dose: 10 mg Documented By: Diphenhydramine HCl (Diphenhydramine 50 Mg/Ml Vial) 50 mg IV NOW ONE Stop: 03/25/25 12:25 Last Admin: 03/25/25 12:34 Dose: 50 mg Documented By: Sodium Chloride (Normal Saline 0.9%) 1,000 mls @ 1,000 mls/hr IV BOLUS ONE Stop: 03/25/25 13:23 Last Infusion: 03/25/25 13:54 Dose: Infused Documented By: Admin: 03/25/25 12:35 Dose: 1,000 mls/hr Documented By: Ketorolac Tromethamine (Ketorolac 30 Mg/Ml Vial) 15 mg IV NOW ONE Stop: 03/25/25 12:25 Last Admin: 03/25/25 12:34 Dose: 15 mg Documented By: Prochlorperazine (Prochlorperazine 10 Mg/2 Ml Vial) 10 mg IV NOW ONE Stop: 03/25/25 12:25 Last Admin: 03/25/25 12:33 Dose: 10 mg Documented By: Vital Signs Vital signs: Vital Signs - 8 hr 03/25/25 10:40 03/25/25 12:33 Temperature 98 F Pulse Rate 85 69 Respiratory Rate 16 Blood Pressure 111/70 102/68 Pulse Oximetry 97 Oxygen Delivery Method Room Air MDM - Neuro Symptoms/Deficit Lab Data Attestation: I reviewed the patient's lab results. Lab results narrative: Glucose 96. White blood cell count 8100, hemoglobin 13.6, platelets adequate. INR 1.1. 03/25/25 10:53 Labs: Lab Results 03/25/25 Range/Units 10:53 WBC 8.1 (4.5-11.0) X10^3/uL RBC 4.23 L (4.5-5.9) X10^6/uL Hgb 13.6 (13.5-17.5) g/dL Hct 39.7 L (41-53) % MCV 93.8 (80-100) fL MCH 32.1 (26-34) PG MCHC 34.2 (30-36) % RDW 14.1 (11.6-14.8) % Plt Count 201 (150-400) X10^3/uL Neut % (Auto) 73.4 (50-75) % Lymph % (Auto) 19.4 L (25-40) % [place] % (Auto) 6.5 (3-14) % Eos % (Auto) 0.2 L (2-4) % Baso % (Auto) 0.5 (0-2) % Neut # (Auto) 6000 (9099-7193) /uL Lymph # (Auto) 1600 (8021-4231) /uL [place] # (Auto) 500 (0-900) /uL Eos # (Auto) 0 (0-450) /uL Baso # (Auto) 0 (0-100) /uL PT 12.5 (9.4-12.5) SECONDS INR 1.1 (0.9-1.3) APTT 35 (25.1-36.5) SECONDS Point of Care Testing Glucose POC [address] scan - head: Radiologist's Impression: [address] [address] [address] Scan Report Signed Patient: Cole Clarke MR#: [id number] : 1980 Acct:[id number] Age/Sex: 44 / M Date of Service: 03/25/25 Loc: ED Accession Number: [id number] Procedure: CT Stroke Ordering Provider: Montez Girard MD PROCEDURE: CT STROKE INDICATIONS: STROKE TECHNIQUE: Noncontrast 4.5 mm thick angled axial sections acquired from the foramen magnum to the vertex, with coronal reformats. For radiation dose reduction, the following was used: automated exposure control, adjustment of mA and/or kV according to patient size. COMPARISON: Reports only from outside prior CT and MRI dated 06/25/2019. FINDINGS: Image quality: Diagnostic. CSF spaces: Basal cisterns are patent. No extra-axial fluid collections. Ventricles are normal in size and shape. Brain: No midline shift. No intracranial mass effect or acute hemorrhage. Moderate subcortical and periventricular white matter hypodensities are seen abdomen greater than expected for patient age, including avulsion at the anterior temporal lobes. Findings can be seen in setting of CADASIL. No acute loss of pierce-white matter differentiation is identified. Skull and face: Calvarium and visualized facial bones are intact, without suspicious lesions. Sinuses: Visualized sinuses and mastoids are clear. IMPRESSION: 1. No acute intracranial pathology. 2. Diffuse white matter changes greater than expected for patient's age. Patient reportedly has a family history of CADASIL, and current findings would be compatible with this syndrome. No acute loss of pierce-white matter differentiation is identified. Findings were discussed with the referring provider, Dr. Girard, by telephone on 03/25/2025 at 10:14 AM ([place] time). This study fulfills neurological imaging criteria for inclusion or exclusion of acute stroke therapies based on available published neurological imaging guidelines. Approved by: Kevin Trent M.D. on 03/25/2025 at 10:15 CTA - brain/neck: Radiologist's Impression: Close Brain MRI (Signed) Kevin Trent - 03/25/25 Head/Neck CTA (Signed) Kevin Trent - 03/25/[address] (Signed) Kevin Ternt - 03/25/25 Launch?Image [address] [address] [address] Scan Report Signed Patient: Cole Clarke MR#: [id number] : 1980 Acct:[id number] Age/Sex: 44 / M Date of Service: 03/25/25 Loc: ED Accession Number: [id number] Procedure: CT angio head and neck Ordering Provider: Montez Girard MD PROCEDURE: CT ANGIO HEAD AND NECK INDICATIONS: CODE STROKE TECHNIQUE: After the administration of intravenous contrast, 1 mm thick sections acquired from the aortic arch through the [place]. 3-dimensional yqbwvvd-wefskaztt-qqummvuczz (MIP) and/or volume rendering reformats were acquired of the central intracranial vasculature and neck separately. For radiation dose reduction, the following was used: automated exposure control, adjustment of mA and/or kV according to patient size. COMPARISON: [facility], CT, CT STROKE, 03/25/2025, 10:59. Reports only from prior outside CT and MRI 06/25/2019. FINDINGS: Image quality: Diagnostic. Cerebral CT Angiogram: Internal carotid arteries: No acute findings. Intracranial ICA are patent with no significant stenosis. No occlusion. No aneurysm. Anterior cerebral arteries: Unremarkable. No significant stenosis. No occlusion. No aneurysm. Middle cerebral arteries: Unremarkable. No significant stenosis. No occlusion. No aneurysm. Posterior cerebral arteries: Unremarkable. No significant stenosis. No occlusion. No aneurysm. Basilar artery: Unremarkable. No significant stenosis. No occlusion. No aneurysm. Vertebral arteries: Unremarkable as visualized. Dural venous sinuses: Unremarkable given phase of enhancement. Other: Arterial phase appearance of the brain parenchyma demonstrates extensive white matter disease greater than expected for patient's age.. Neck CT Angiogram: Internal carotid arteries: Unremarkable. No significant stenosis. No dissection or occlusion. Common carotid arteries: Unremarkable. No significant stenosis. No dissection or occlusion. External carotid arteries: Unremarkable. No occlusion. Vertebral arteries: Left vertebral artery arises directly from the aortic arch, a normal anatomic variant. Vertebral arteries are patent. Right vertebral artery is mildly congenitally dominant. Aortic Arch and Mediastinum: Partially visualized aortic arch unremarkable without evidence of aneurysm. Origins of the great vessels unremarkable. Other: Arterial phase soft tissues of the neck and chest are unremarkable. IMPRESSION: No significant intracranial arterial abnormality is seen. No significant abnormality is seen within the arteries of the neck. Any quantitative measurements of stenosis were performed using NASCET criteria. Approved by: Kevin Trent M.D. on 03/25/2025 at 10:21 MRI brain: Radiologist's Impression: [place] [address] CT Scan Report Signed Patient: Cole Clarke MR#: [id number] : 1980 Acct:[id number] Age/Sex: 44 / M Date of Service: 03/25/25 Loc: ED Accession Number: [id number] Procedure: CT Stroke Ordering Provider: Montez Girard MD PROCEDURE: CT STROKE INDICATIONS: STROKE TECHNIQUE: Noncontrast 4.5 mm thick angled axial sections acquired from the foramen magnum to the vertex, with coronal reformats. For radiation dose reduction, the following was used: automated exposure control, adjustment of mA and/or kV according to patient size. COMPARISON: Reports only from outside prior CT and MRI dated 06/25/2019. FINDINGS: Image quality: Diagnostic. CSF spaces: Basal cisterns are patent. No extra-axial fluid collections. Ventricles are normal in size and shape. Brain: No midline shift. No intracranial mass effect or acute hemorrhage. Moderate subcortical and periventricular white matter hypodensities are seen abdomen greater than expected for patient age, including avulsion at the anterior temporal lobes. Findings can be seen in setting of CADASIL. No acute loss of pierce-white matter differentiation is identified. Skull and face: Calvarium and visualized facial bones are intact, without suspicious lesions. Sinuses: Visualized sinuses and mastoids are clear. IMPRESSION: 1. No acute intracranial pathology. 2. Diffuse white matter changes greater than expected for patient's age. Patient reportedly has a family history of CADASIL, and current findings would be compatible with this syndrome. No acute loss of pierce-white matter differentiation is identified. Findings were discussed with the referring provider, Dr. Girard, by telephone on 03/25/2025 at 10:14 AM ([place] time). This study fulfills neurological imaging criteria for inclusion or exclusion of acute stroke therapies based on available published neurological imaging guidelines. Approved by: Kevin Trent M.D. on 03/25/2025 at 10:15 MDM Narrative Medical decision making narrative: 44-year-old male with family history of CADASIL syndrome, no neurology following, no known prior stroke/TIA symptoms, not usually with recurrent headaches, with recent palpitations and passing-out episodes, ongoing left-sided headache, since 1 this morning has left-sided weakness arm greater than leg. On examination has some drift left arm not as great as left leg. Stroke code called, CT head ordered, CT angiogram head and neck vessels ordered. Labs pending, EKG pending. CT head noncontrast, no acute changes. White matter brain changes noted. See radiology report. CT angiogram head and neck vessels, no acute changes. See radiology report. 1230, case discussed with [facility] stroke Neurology follow Dr Mcleod. History of CADASIL relayed, genetic audible somewhat dominant, main features are migraine headache, subcortical strokes, cognitive decline over time. She advises headache cocktail trial, obtain MRI without contrast of the brain if possible today, oral aspirin load than baby aspirin daily. Advises follow up with Neurology either in their clinic or up in this region. Oral aspirin 325 mg chewables. IV Compazine, Benadryl, Toradol, dexamethasone, fluid bolus. MRI brain ordered without contrast. MRI brain showed lacunar infarcts, white matter disease, consistent with CADASIL disease. See radiology report. Patient feels better after headache treatment. Neurology advice for aspirin daily. He is walking around, has no longer have any headache nor any weakness to the left side. He would like to go home. No further workup for now. Advised neurology follow up, and to discuss referral with his regular provider. Advised to take aspirin daily. Given copy of MRI brain report. Discharged home per patient request. Advised to follow up with local area neurologist, consider PCP referral. Advised taking baby aspirin daily. Return precautions discussed. Discharge Plan Departure Patient Disposition: Home Clinical Impression: Headache, Acute left-sided weakness, CADASIL (cerebral autosomal dominant arteriopathy with subcortical infarcts and leukoencephalopathy) Activity Restrictions/Additional Instructions: Family history of CADASIL. Left-sided headache, recent left-sided weakness since early this morning. Case discussed with Neurology after initial imaging suspicious for white matter disease changes. Suspected CADASIL. Neurology had suggested migraine cocktail, and in her experience weakness goes away after the headache goes away. Which is what happened tonight, your headache went away and you had resolution of your left-sided weakness. MRI of the brain was performed which did show white matter disease and lacunar infarcts, suspicious for CADASIL, or consistent with CADASIL. Neurologist Dr Mcleod at [facility] did advise use of baby aspirin daily by mouth. She encouraged you to follow up with local neurologist. There is no Neurology on staff here but there should be Neurology on staff at [facility], [facility], [facility]. Or you can follow up with [facility] neurology in [place]. Follow up with your regular provider advised early this next week to help expedite Neurology consultations in full close follow up. Return to this/nearest emergency department for any change worsening symptoms or any concerns prior. Prescriptions: No Action ondansetron 4 mg tablet,disintegrating 4 mg PO Q6H PRN (Reason: nausea and vomiting) Qty: 10 0RF cyclobenzaprine 10 mg tablet 10 mg PO TID PRN (Reason: muscle spasm) Qty: 14 0RF hydroxyzine HCl 50 mg tablet 50 - 100 mg PO QID PRN (Reason: Anxiety) Patient Comments: take 1 to 2 tablets by mouth four times a day if needed for anxiety alprazolam 0.25 mg tablet 0.25 mg PO BID Patient Comments: patient states did not take 0.25mg. believes last dose was 0.5mg taken a couple of days ago and then today. 10/02/19 Rx Instructions: TAKE 1 TABLET BY MOUTH TWICE DAILY FOR 7 DAYS hydroxyzine HCl 25 mg tablet 25 - 50 mg PO TID PRN (Reason: anxiety) Qty: 20 0RF Referrals: Deb Montemayor ARNP [Primary Care Provider] - Stand Alone Forms: Patient Portal/API/Survey
[2025-03-25 12:33] VITALS: BP 102/68; PULSE 69
[2025-03-25] MEDS: PROCHLORPERAZINE 10 MG/2 ML VIAL IV (12:33)
[2025-03-25] MEDS: KETOROLAC 30 MG/ML VIAL 15 MG IV (12:34)
[2025-03-25] MEDS: diphenhydrAMINE 50 MG/ML VIAL IV (12:34)
[2025-03-25] MEDS: ASPIRIN 81 MG CHEW TAB 324 MG PO (12:35)
[2025-03-25] MEDS: DEXAMETHASONE 10 MG/ML VIAL IV (12:35)
[2025-03-25] MEDS: SODIUM CHLORIDE 0.9% 1,000 ML 1000 ML IV (12:35)
--- NOTE | 2025-03-25 12:54 | DI.MRI.S_ITS ---
PROCEDURE: MR HEAD/BRAIN WO CON INDICATIONS: left weakness, hx CADASIL TECHNIQUE: Noncontrast axial T1 spin echo, axial T2 fast spin echo, sagittal and axial FLAIR, coronal T2 fast spin echo, axial gradient echo, axial diffusion and ADC through the brain. COMPARISON: None. FINDINGS: Image quality: Excellent. CSF Spaces: Basal cisterns are patent. No extra-axial fluid collections. Ventricles are normal in size and shape. Brain: No acute intracranial hemorrhage or mass effect. Diffusion-weighted images demonstrate no acute infarct. Moderate T2/FLAIR hyperintense signal in the periventricular and subcortical white matter that is greater than expected for a age. Chronic lacunar infarct is seen in the left frontal periventricular white matter. Skull and face: Calvarium has normal marrow signal. Orbits appear normal. Sinuses: Sinuses and mastoids are clear. IMPRESSION: 1. No acute intracranial hemorrhage or recent infarct. 2. Chronic small vessel ischemic changes compatible with patient's history of CADASIL. 3. Small chronic lacunar infarct in the left frontal periventricular white matter. Approved by: Kevin Trent M.D. on 03/25/2025 at 12:29
== END 2025-03-25 14:00 | disposition home or self-care (01) ==
PROVIDERS: Emergency Provider Emergency Medicine; PCP Emergency Medicine
DX: R51.9 Headache, unspecified (principal); R53.1 Weakness; I67.850 Cerebral autosomal dominant arteriopathy with subcortical infarcts and leukoencephalopathy
CPT/HCPCS: 36415; 70450; 70496; 70498; 70551; 82962; 85025; 85610; 85730; 96361; 96374; 96375; 99285; J0780; J1100; J1200; J1885; Q9967